=== PATIENT | male | born 1955 | race Caucasian/White ===

== ENCOUNTER → 2017-10-05 09:44 | Outpatient (CLI) | payer OTHER, SELFPAY ==
[2017-10-05 10:36] LABS: Hemoglobin A1C% w Est Avg Glu 6.3 % (4.0-6.0)
[2017-10-05 11:59] LABS: Thyroid Stimulating Hormone 5.18 uIU/mL (0.47-4.68)
--- NOTE | 2017-11-06 10:56 | DIET.PN ---
Pre-DIABETES Nutrition Initial Assessment: ASSESS: 61 yom referred for pre-diabetes and obesity. Pt states he recently had blood work done while at a visit for vertigo indicating an increase in blood sugar and blood pressure. He has recently started exercising and cutting down on his salt intake. Has lost over 20 lbs in last 5 weeks. Does not recall any family history of diabetes, but states he experienced several episodes of hypoglycemia as a young adult. He is very motivated to make lifestyle changes as he does not want to take medications. LABS: Per pt report: A1c: 6.3 MEDS: na DIET: Per 24-hour recall: B: oatmeal w/ yogurt, berries, honey, and walnuts L: apple and yogurt w/ mixed nuts D: Chicken and veggies; spaghetti; tacos Weight: 270 Ht: 73 BMI: 35.6 (obese class II) Exercise: recently began weight lifting with son a few times/week; swimming/surfing 2x/wk NUTRITION DX (1) Altered Nutrition related labs related to impaired glucose metabolism, lack of previous exposure to accurate nutrition information as evidenced by pt report, dx of pre-diabetes, previous diet high in refined carbohydrates. INTERVENTION(s): (1) Discussed pathophysiology of diabetes and impact of nutrition/diet on blood sugar control. Discussed fed versus non-fed state. (2) Discussed the effect of carbohydrates/protein/fat on blood sugar control. Stressed importance of consistent carbohydrate intake at each meal and provided instructions for recommended servings/portions of carbohydrates/protein per meal. Provided pt with educational material. (3) Reviewed carbohydrate counting and measuring carbohydrate content via servings sizes and reading nutrition labels. Provided handouts. (4) Discussed the difference between simple versus complex carbohydrates and the effect of fiber on blood sugar control. Discussed various methods to increase fiber content in diet. (5) Stressed importance of meal timing and not going >4-5 hours between meals. Encouraged adding protein to evening snack to support glucose control overnight. Patient agreeable. (6) Discussed healthy weight loss goals of 1-2lbs per week through diet and exercise. Pt agreeable to exercise at least 30 minutes daily. (7) Recommended pt purchase glucometer to check BG periodically for better home management. Pt Goals: (1) Pt agreed to purchase glucometer and check FBG 2-3 x/wk and alternate meal time 2hr PP. (2) Pt agreed to start counting carbohydrates via food labels, measuring cups/spoons. (3) Pt will keep a food journal w/ BG readings to manage portion sizes and BG. (4) Pt will exercise at least 30 min daily alternating cardiovascular and resistance training. (5) Pt will request new a1c approx 3 mo following initial result. MONITOR/EVALUATE: Anticipate excellent compliance. Nutrition follow-up as needed.
== END ==
PROVIDERS: Visit Provider Internal Medicine
DX: E03.9 Hypothyroidism, unspecified (principal); R73.9 Hyperglycemia, unspecified
CPT/HCPCS: 36415; 83036; 84443

== ENCOUNTER → 2017-11-06 09:49 | Outpatient (CLI) | payer OTHER, SELFPAY | PROVIDERS: Family Provider Family Medicine; PCP Family Medicine; Visit Provider Internal Medicine | DX: R73.01 Impaired fasting glucose (principal) | CPT/HCPCS: 97802 ==

== ENCOUNTER → 2017-11-11 08:38 | Outpatient (CLI) | payer OTHER, SELFPAY ==
[2017-11-11 10:08] LABS: Thyroid Stimulating Hormone 2.41 uIU/mL (0.47-4.68)
== END ==
PROVIDERS: Visit Provider Internal Medicine
DX: E03.9 Hypothyroidism, unspecified (principal)
CPT/HCPCS: 36415; 84443

== ENCOUNTER → 2018-05-28 10:11 | Outpatient (CLI) | payer OTHER, SELFPAY | PROVIDERS: Visit Provider Family Medicine | DX: E03.9 Hypothyroidism, unspecified (principal) | CPT/HCPCS: 36415; 84443 ==

== ENCOUNTER → 2019-07-08 14:00 | Outpatient (CLI) | payer OTHER, SELFPAY ==
[2019-07-08 15:59] LABS: Thyroid Stimulating Hormone 3.68 uIU/mL (0.47-4.68)
[2019-07-08 16:00] LABS: Prostate Specific Antigen 0.699 ng/mL (0.10-4.00)
== END ==
PROVIDERS: PCP Nurse Practitioner; Referring Provider Family Medicine; Visit Provider Family Medicine
DX: E03.9 Hypothyroidism, unspecified (principal); R39.9 Unspecified symptoms and signs involving the genitourinary system
CPT/HCPCS: 36415; 84153; 84443

== ENCOUNTER → 2019-07-26 10:54 | Outpatient (CLI) | payer OTHER, SELFPAY ==
[2019-07-26 13:30] LABS: Prostate Specific Antigen 0.729 ng/mL (0.10-4.00)
== END ==
PROVIDERS: PCP Family Medicine; Referring Provider Urology; Visit Provider Physician Assistant
DX: N40.1 Benign prostatic hyperplasia with lower urinary tract symptoms (principal)
CPT/HCPCS: 36415; 84153

== ENCOUNTER → 2021-09-27 08:59 | Outpatient (CLI) | payer OTHER, SELFPAY ==
[2021-09-27 09:53] LABS: Add Manual Diff / Slide Review NO; Basophils Absolute Auto 0 /uL (0-100); Basophils Percent Auto 0.9 % (0-2); Eosinophils Absolute Auto 200 /uL (0-450); Eosinophils Percent Auto 3.4 % (2-4); Hematocrit 42.3 % (41-53); Hemoglobin 15.1 g/dL (13.5-17.5); Lymphocytes Absolute Auto 1600 /uL (1100-4500); Lymphocytes Percent Auto 34.2 % (25-40); Mean Corpuscular HGB Conc 35.7 % (30-36); Mean Corpuscular Hemoglobin 30.3 PG (26-34); Mean Corpuscular Volume 85.1 fL (80-100); Monocytes Absolute Auto 300 /uL (0-900); Monocytes Percent Auto 6.4 % (3-14); Neutrophils Absolute Auto 2700 /uL (1500-7000); Neutrophils Percent Auto 55.1 % (50-75); Platelet Count 159 X10^3/uL (150-400); Red Blood Cell Count 4.97 X10^6/uL (4.5-5.9); Red Cell Distribution Width 13.4 % (11.6-14.8); White Blood Cell Count 4.8 X10^3/uL (4.5-11.0)
[2021-09-27 09:57] LABS: Alanine Aminotransferase 36 IU/L (<50); Albumin 4.5 g/dL (3.5-5.0); Albumin Globulin Ratio 2.3 (1.0-2.8); Alkaline Phosphatase 49 U/L (38-126); Aspartate Aminotransferase 35 IU/L (17-59); BUN Creatinine Ratio 20.9 (6-22); Bilirubin Total 1.2 mg/dL (0.2-1.3); Blood Urea Nitrogen 18 mg/dL (9-20); Carbon Dioxide 28 mmol/L (22-32); Chloride 106 mmol/L (98-107); Cholesterol 143 mg/dL (140-199); Estimated Glomerular Filt Rate > 60 mL/min (>60); Glucose 107 mg/dL (80-110); HDL Cholesterol 39 mg/dL (40-60); HEMOLYSIS < 15 (0-50); LDL Cholesterol Calculated 87 mg/dL (<100); Potassium 4.6 mmol/L (3.4-5.1); Sodium 141 mmol/L (137-145); Total Protein 6.5 g/dL (6.3-8.2); Triglycerides 87 mg/dL (35-150)
[2021-09-27 10:24] LABS: Thyroid Stimulating Hormone 3.95 uIU/mL (0.47-4.68)
[2021-09-27 10:27] LABS: Prostate Specific Antigen Scrn 1.07 ng/mL (0.1-4.0)
== END ==
PROVIDERS: PCP Nurse Practitioner; Referring Provider Nurse Practitioner; Visit Provider Nurse Practitioner
DX: Z00.00 Encounter for general adult medical examination without abnormal findings (principal); Z12.5 Encounter for screening for malignant neoplasm of prostate
CPT/HCPCS: 36415; 80053; 80061; 84443; 85025; G0103

== ENCOUNTER 2022-10-10 07:12 | Day surgery (SDC) | payer OTHER, SELFPAY ==
[2022-10-09 14:39] VITALS: BMI 32.8
[2022-10-10 07:28] VITALS: BP 176/97; PULSE 63; RESP 16; TEMP 36.2; O2SAT 98; BMI 32.8
--- NOTE | 2022-10-10 07:30 | SUR.OPER ---
Lithotomy on padded OR bed, head on pillow, arms secured on padded arm boards at <90 degrees abduction. Legs secured in padded yellow fins stirrups.
[2022-10-10] MEDS: SCOPOLAMINE 1 PATCH TOP (07:43)
[2022-10-10] MEDS: LACTATED RINGERS 1,000 ML 100 ML IV (07:44)
--- NOTE | 2022-10-10 07:44 | PM.PREOP ---
Pre-operative Note Interval Note History & Physical reviewed/Exam performed by Physician: Yes Changes to H&P: No
[2022-10-10] MEDS: BUPIVACAINE 0.25% (PF) VIAL 30 ML INJ (08:12)
[2022-10-10] MEDS: DIBUCAINE 1% OINT 28 GM 1 APPLIC TOP (08:13)
[2022-10-10 08:22] VITALS: BP 107/53; PULSE 61; RESP 9; TEMP 36.3; O2SAT 92
[2022-10-10 08:27] VITALS: BP 98/60; PULSE 62; RESP 10; O2SAT 92
--- NOTE | 2022-10-10 08:29 | PM.OP.1 ---
Operative Date/Time/Diagnoses Date of procedure: 10/10/22 Time of procedure: 08:29 Pre-op diagnosis: Perianal abscess Post-op diagnosis: same Procedure & Clinicians Procedure: Rectal examination under anesthesia. Incision and drainage of perianal abscess Same procedure as scheduled: Yes Indications: 66-year-old man with rectal pain here for examination under anesthesia Surgeon: Emerson Boateng Click Yes if Unassisted: Yes Anesthesia Type: General Operative Notes Findings: Left lateral Perianal abscess Specimen(s): none sent Estimated Blood Loss (mL): 5 Procedure in detail: Patient was brought to the operating room placed supine on the table. Bilateral lower extremity compression devices were applied. General anesthesia was induced and he was intubated with an LMA. He was placed into lithotomy position. He is prepped and draped in sterile fashion. Time-out performed. Speculum was inserted into the anus examination was made. There were no masses or fluctuance within the rectum. In the left lateral perianal area there was a relatively superficial abscess. 30 mL of local anesthetic was injected into the perirectal space for local anesthetic. The fluctuance was then incised with drainage of serosanguineous fluid. Patient tolerated the procedure well was transferred to recovery in stable condition. Complications: none Post-operative Condition: stable Disposition: same day surgery
[2022-10-10 08:32] VITALS: BP 109/66; PULSE 61; RESP 10; O2SAT 92
[2022-10-10 08:37] VITALS: BP 110/69; PULSE 59; RESP 10; O2SAT 94
[2022-10-10 08:43] VITALS: BP 116/74; PULSE 61; RESP 10; TEMP 36.3; O2SAT 94
== END 2022-10-10 09:06 | disposition home or self-care (01) ==
PROVIDERS: PCP Nurse Practitioner; Referring Provider Surgery; Visit Provider Surgery
PROC: (CPT 46040; principal; 2022-10-10 09:15)
DX: K61.0 Anal abscess (principal)
CPT/HCPCS: 46045; J1170; J2405; J2704; J3010

== ENCOUNTER → 2023-01-16 09:03 | Outpatient (CLI) | payer OTHER, SELFPAY ==
[2023-01-16 10:53] LABS: Creatinine Urine Random 141.6 mg/dL
[2023-01-16 10:55] LABS: Alanine Aminotransferase 43 IU/L (<50); Albumin 4.4 g/dL (3.5-5.0); Albumin Globulin Ratio 1.8 (1.0-2.8); Alkaline Phosphatase 45 U/L (38-126); Aspartate Aminotransferase 34 IU/L (17-59); BUN Creatinine Ratio 23.6 (6-22); Bilirubin Total 1.3 mg/dL (0.2-1.3); Blood Urea Nitrogen 17 mg/dL (9-20); Calcium 9.4 mg/dL (8.4-10.2); Carbon Dioxide 27 mmol/L (22-32); Chloride 106 mmol/L (98-107); Estimated Glomerular Filt Rate > 60 mL/min (>60); Globulin 2.5 g/dL (1.7-4.1); Glucose 127 mg/dL (80-110); HEMOLYSIS < 15 (0-50); Sodium 139 mmol/L (137-145); Total Protein 6.9 g/dL (6.3-8.2)
[2023-01-16 10:58] LABS: Microalbumi Creatinin Ratio Ur 7.7 ug/mg CR (<30); Microalbumin Urine Random 1.1 mg/dL (0-1.6)
[2023-01-16 11:34] LABS: Thyroid Stimulating Hormone 4.28 uIU/mL (0.47-4.68)
[2023-01-16 11:42] LABS: Hep C Virus Ab w/Reflex Quant NEGATIVE s/c (NEGATIVE)
== END ==
PROVIDERS: PCP Nurse Practitioner; Referring Provider Nurse Practitioner; Visit Provider Nurse Practitioner
DX: Z11.59 Encounter for screening for other viral diseases (principal); I10 Essential (primary) hypertension; E03.9 Hypothyroidism, unspecified; Z79.891 Long term (current) use of opiate analgesic
CPT/HCPCS: 36415; 80053; 82043; 82570; 84443; 86803

== ENCOUNTER → 2023-01-23 14:31 | Outpatient (CLI) | payer OTHER, SELFPAY ==
--- NOTE | 2023-01-23 14:32 | DI.ECHO.S_ITS ---
[facility]---------+ [facility] +---------+ : : [address] : [address] : : : : [id number] : : : : Phone: [phone]---------+ Echocardiogram Report + + :Name: ALVINO MATHIS Study Date: 01/23/2023 Height: 73 in : :[facility] ReadingLocation: Weight: 250 lb : : Gender: Male BSA: 2.4 m2 : :: 1955 Age: 67 yrs BP: 186/99 mmHg: :Reason For Study: HYPERTENSION : :Ordering Physician: SOTO, : :MARIANNE Performed By: Erica Bejarano : :Referring: MARIANNE VALERA : + + Interpretation Summary There is mild concentric left ventricular hypertrophy. The ejection fraction is estimated to be 60-65%. There is mild aortic regurgitation. Procedure: A two-dimensional transthoracic echocardiogram with color flow and Doppler was performed. The study quality was technically adequate. There is no prior echocardiogram noted for this patient. The patient was in sinus rhythm with heart rates between 56-63 bpm during the exam. Left Ventricle: The left ventricle is normal in size. There is mild concentric left ventricular hypertrophy. The ejection fraction is estimated to be 60-65%. There are no focal wall motion abnormalities. Right Ventricle: The right ventricle grossly appears normal in size with probable normal systolic function. Atria: The left atrial size is normal. Right atrial size is normal. There is no Doppler evidence for an interatrial shunt. Mitral Valve: The mitral valve leaflets appear mildly thickened, but open well. There is trace mitral regurgitation. Aortic Valve: The aortic valve is not well visualized. The aortic valve opens well. There is no aortic valve stenosis. There is mild aortic regurgitation. Tricuspid Valve: The tricuspid valve is normal in structure and function. There is a trace or physiologic amount of tricuspid regurgitation. Pulmonary artery pressures cannot be estimated because of the lack of a measurable TR jet velocity. Pulmonic Valve: The pulmonic valve leaflets are thin and pliable; valve motion is normal. There is trace pulmonic regurgitation. Great Vessels: The aortic root is borderline dilated. The ascending aorta is normal in size. The IVC is dilated (diameter is greater than 2.1 cm) yet it collapses greater than 50% with a sniff. This suggests a right atrial pressure of 8 mm Hg. Pericardium/ Pleura There is no pericardial effusion. There is no pleural effusion. MMode/2D Measurements & Calculations LVIDd: 4.6 cm LVOT diam: 2.4 cm LVIDs: 3.0 cm Ao root diam: 3.9 cm FS: 35.9 % asc Aorta Diam: 3.8 cm EPSS: 0.71 cm Ao Arch Diam (Prox Trans): 3.6 cm IVSd: 1.1 cm LVPWd: 1.1 cm LV miller. diameter/BSA (cm/m^2): 1.9 LV sys. diameter/BSA (cm/m^2): 1.2 LA A2 area: 21.7 cm2 RA long axis: 4.4 cm LA A4 area: 14.6 cm2 RA area: 10.2 cm2 LA length (vol): 4.4 cm RA vol: 20.3 ml LA vol: 60.4 ml RA : 8.6 ml/m2 LA vol index: 25.5 ml/m2 IVC diam: 2.1 cm RVD1 (basal): 3.5 cm RVD2 (mid): 3.2 cm TAPSE: 2.4 cm Doppler Measurements & Calculations Ao V2 max: 103.5 cm/sec LVOT Max Gennaro: 90.6 cm/sec Ao V2 mean: 76.3 cm/sec LV V1 max P.3 mmHg Ao max P.3 mmHg LV V1 VTI: 21.1 cm Ao mean P.5 mmHg JACLYN(I,D): 4.5 cm2 Ao V2 VTI: 21.2 cm JACLYN(V,D): 4.0 cm2 sev ratio: 0.99 JACLYN indexed to BSA (cm^2/m^2): 1.9 MV E max gennaro: 57.1 cm/sec PA V2 max: 87.4 cm/sec MV A max gennaro: 79.6 cm/sec PA V2 mean: 59.9 cm/sec MV E/A: 0.72 PA mean P.6 mmHg Med Peak E' Gennaro: 5.9 cm/sec PA pr(Accel): 13.9 mmHg E/E' med: 9.7 Lat Peak E' Gennaro: 7.3 cm/sec E/E' lat: 7.8 E/e' average: 8.8 MV dec time: 0.29 sec SV(LVOT): 96.0 ml Electronically signed by: Juanis Lancaster on Reading Physician:01/23/2023 05:08 PM
== END ==
PROVIDERS: PCP Nurse Practitioner; Referring Provider Nurse Practitioner; Visit Provider Nurse Practitioner
DX: I10 Essential (primary) hypertension (principal); I51.7 Cardiomegaly; I35.1 Nonrheumatic aortic (valve) insufficiency
CPT/HCPCS: 93306

== ENCOUNTER → 2023-03-16 09:33 | Outpatient (CLI) | payer MEDICARE, SELFPAY ==
[2023-03-16 11:05] LABS: Alanine Aminotransferase 42 IU/L (<50); Albumin 4.6 g/dL (3.5-5.0); Albumin Globulin Ratio 1.8 (1.0-2.8); Alkaline Phosphatase 45 U/L (38-126); Aspartate Aminotransferase 31 IU/L (17-59); Blood Urea Nitrogen 17 mg/dL (9-20); Calcium 9.6 mg/dL (8.4-10.2); Carbon Dioxide 28 mmol/L (22-32); Chloride 104 mmol/L (98-107); Estimated Glomerular Filt Rate > 60 mL/min (>60); Globulin 2.6 g/dL (1.7-4.1); Glucose 113 mg/dL (80-110); HEMOLYSIS < 15 (0-50); Potassium 4.4 mmol/L (3.4-5.1); Sodium 140 mmol/L (137-145); Total Protein 7.2 g/dL (6.3-8.2)
[2023-03-16 11:13] LABS: Hemoglobin A1C% w Est Avg Glu 5.6 % (4.0-6.0)
[2023-03-16 11:45] LABS: Creatinine Urine Random 205.4 mg/dL
[2023-03-16 11:50] LABS: Microalbumi Creatinin Ratio Ur 5.8 ug/mg CR (<30); Microalbumin Urine Random 1.2 mg/dL (0-1.6)
== END ==
PROVIDERS: PCP Nurse Practitioner; Referring Provider Nurse Practitioner; Visit Provider Nurse Practitioner
DX: I10 Essential (primary) hypertension (principal); R73.01 Impaired fasting glucose
CPT/HCPCS: 36415; 80053; 82043; 82570; 83036; 93005; 93010

== ENCOUNTER → 2023-06-09 06:18 | Outpatient (CLI) | payer MEDICARE, SELFPAY ==
[2023-06-09 08:15] LABS: Cholesterol 158 mg/dL (140-199); HDL Cholesterol 37 mg/dL (40-60); LDL Cholesterol Calculated 85 mg/dL (<100); Triglycerides 179 mg/dL (35-150)
== END ==
LOC: LAB 06:19
PROVIDERS: PCP Nurse Practitioner; Referring Provider Nurse Practitioner; Visit Provider Nurse Practitioner
DX: E78.5 Hyperlipidemia, unspecified (principal); I10 Essential (primary) hypertension
CPT/HCPCS: 36415; 80061

== ENCOUNTER → 2024-07-18 08:08 | Outpatient (CLI) | payer MEDICARE, SELFPAY ==
[2024-07-18 09:07] LABS: Add Manual Diff / Slide Review NO; Basophils Absolute Auto 100 /uL (0-100); Eosinophils Absolute Auto 200 /uL (0-450); Eosinophils Percent Auto 2.8 % (2-4); Hematocrit 42.4 % (41-53); Hemoglobin 15.1 g/dL (13.5-17.5); Lymphocytes Absolute Auto 1600 /uL (1100-4500); Mean Corpuscular HGB Conc 35.6 % (30-36); Mean Corpuscular Hemoglobin 31.2 PG (26-34); Mean Corpuscular Volume 87.8 fL (80-100); Monocytes Absolute Auto 300 /uL (0-900); Monocytes Percent Auto 6.4 % (3-14); Neutrophils Absolute Auto 3200 /uL (1500-7000); Neutrophils Percent Auto 59.8 % (50-75); Platelet Count 162 X10^3/uL (150-400); Red Blood Cell Count 4.83 X10^6/uL (4.5-5.9); Red Cell Distribution Width 13.4 % (11.6-14.8); White Blood Cell Count 5.3 X10^3/uL (4.5-11.0)
[2024-07-18 09:32] LABS: Alanine Aminotransferase 58 IU/L (<50); Albumin 4.5 g/dL (3.5-5.0); Albumin Globulin Ratio 2.3 (1.0-2.8); Alkaline Phosphatase 46 U/L (38-126); Aspartate Aminotransferase 40 IU/L (17-59); BUN Creatinine Ratio 24.1 (6-22); Bilirubin Total 1.3 mg/dL (0.2-1.3); Blood Urea Nitrogen 21 mg/dL (9-20); Calcium 9.3 mg/dL (8.4-10.2); Carbon Dioxide 26 mmol/L (22-32); Chloride 104 mmol/L (98-107); Cholesterol 181 mg/dL (140-199); Estimated Glomerular Filt Rate > 60 mL/min (>60); Glucose 190 mg/dL (70-99); HDL Cholesterol 40 mg/dL (40-60); HEMOLYSIS < 15 (0-50); LDL Cholesterol Calculated 113 mg/dL (<100); Potassium 4.4 mmol/L (3.4-5.1); Sodium 139 mmol/L (137-145); Total Protein 6.5 g/dL (6.3-8.2); Triglycerides 142 mg/dL (35-150)
[2024-07-18 10:02] LABS: TSH w/ Reflex to FT4 5.33 uIU/mL (0.47-4.68)
[2024-07-18 10:04] LABS: Prostate Specific Antigen Scrn 0.893 ng/mL (0.1-4.0)
[2024-07-18 10:27] LABS: Free T4, Direct Thyroxine 1.06 ng/dL (0.78-2.19)
[2024-07-19 17:09] LABS: Fecal Immunochemical Test Negative (Negative)
== END ==
PROVIDERS: PCP Family Medicine; Referring Provider Family Medicine; Visit Provider Family Medicine
DX: E78.5 Hyperlipidemia, unspecified (principal); Z12.5 Encounter for screening for malignant neoplasm of prostate; I10 Essential (primary) hypertension; E03.9 Hypothyroidism, unspecified; Z12.11 Encounter for screening for malignant neoplasm of colon
CPT/HCPCS: 36415; 80053; 80061; 82274; 84439; 84443; 85025; G0103